=== PATIENT | male | born 1965 | race Caucasian/White ===

== ENCOUNTER 2021-05-12 02:41 | Inpatient (IN) | payer OTHER ==
[~2021-05-12] VITALS: Ht 188 cm; Wt 95.3 kg
--- NOTE | 2021-05-12 02:56 | NUR ---
MD Rosenthal in room to do MSE.
[2021-05-12] MEDS ORDERED: ALBUTEROL SULFATE 2.5 MG/3 ML NEBU NEB ONE (03:00)
--- NOTE | 2021-05-12 03:12 | NUR ---
Respiratory therapist in room providing breathing treatment.
[2021-05-12] MEDS ORDERED: ALBUTEROL SULFATE 2.5 MG/3 ML NEBU ONE (03:18)
--- NOTE | 2021-05-12 03:20 | NUR ---
auto transmission technician at bedside.
[2021-05-12 03:29] LABS: HEMATOCRIT 43.5 % (36.7-47.1); MEAN CORPUSCULAR HEMOGLOBIN 28.1 uug (23.8-33.4); MEAN CORPUSCULAR VOLUME 85.4 fL (73.0-96.2); PLATELET COUNT (AUTO) 205 K/uL (152-348)
[2021-05-12 03:31] LABS: POTASSIUM 3.9 mmol/L (3.5-5.1)
[2021-05-12 03:37] LABS: BILIRUBIN,DIRECT 0.1 mg/dL (0.0-0.2); BILIRUBIN,TOTAL 0.4 mg/dL (0.2-1.0); TOTAL PROTEIN, SERUM 6.8 g/dL (6.4-8.2)
[2021-05-12] MEDS ORDERED: IV NORMAL SALINE 250 ML IV ONE (04:13)
[2021-05-12] MEDS ORDERED: IOHEXOL 350 100 ML INFUS..BTL ONE (04:13)
[2021-05-12] MEDS ORDERED: SWABABLE VALVE TRANSFER SET EA MC ONE (04:13)
--- NOTE | 2021-05-12 04:21 | NUR ---
Patient taken out for CT scan with contrast by hvac service technician.
--- NOTE | 2021-05-12 05:00 | NUR ---
Patient is resting comfortably in bed with eyes closed, no acute distress noted.
[2021-05-12] MEDS ORDERED: ENOXAPARIN SODIUM 100 MG/ML DISP.SYRIN SQ ONE ×2 (06:15→06:21)
--- NOTE | 2021-05-12 06:15 | NUR ---
MD Rosenthal connected to ROJELIO Singh from [facility].
--- NOTE | 2021-05-12 06:21 | NUR ---
Faraz pak in [facility] - 05/12/21 at 0636 by PAULINE Called for a room, patient will be assigned to [id number].
--- NOTE | 2021-05-12 06:21 | NUR ---
Called for a room, patient will be assigned to telemetry 314; COVID suspect per MD Rosenthal.
--- NOTE | 2021-05-12 06:33 | NUR ---
Report given to BA Salas.
[2021-05-12] MEDS ORDERED: ACETAMINOPHEN 325 MG TABLET PO PRN (06:45)
[2021-05-12] MEDS ORDERED: Z GUARD REMEDY PASTE 57 GM TUBE TOP PRN (06:45)
[2021-05-12] MEDS ORDERED: ONDANSETRON 4 MG/2 ML VIAL IV PRN (06:45)
[2021-05-12] MEDS ORDERED: MAGNESIUM HYDROXIDE 30 ML LIQUID UDC PO PRN (06:45)
--- NOTE | 2021-05-12 08:00 | NUR ---
received patient from ER via wheel chair. patient transferred to bed, patients vitals checked. patient on room air with saturation at 96%, patient able to ambulate per self with steady gait. patient stable at this time with no complains of any SOB, pain or discomfort. call light and belongings within reach. will continue to monitor.
--- NOTE | 2021-05-12 08:00 | NUR ---
transfered pt to floor in stable condition, with pui precautions .
[2021-05-12 11:00] VITALS: BP 131/74
[2021-05-12 16:04] VITALS: BP 133/74
[2021-05-12] MEDS ORDERED: ENOXAPARIN SODIUM 100 MG/ML DISP.SYRIN SQ SCH (18:00)
--- NOTE | 2021-05-12 18:46 | NUR ---
PATIENT IN BED AWAKE AND ALERT, HOB ELEVATED. PATIENT ON ROOM AIR WITH SATURATION AT 98%. PATIENT ABLE TO AMBULATE PER SELF. NO SOB, PAIN OR DISTRESS NOTED AT THIS TIME. CALL LIGHT WITHIN REACH. WILL REPORT TO ONCOMING SHIFT.
[2021-05-12] MEDS ORDERED: ALBUTEROL SULFATE 2.5 MG/3 ML NEBU NEB SCH (19:45)
[2021-05-12] MEDS ORDERED: IPRATROPIUM BROMIDE 0.5 MG/2.5 ML NEBU NEB SCH (19:45)
[2021-05-12] MEDS ORDERED: ALBUTEROL SULFATE 2.5 MG/3 ML NEBU NEB PRN (19:45)
[2021-05-12] MEDS ORDERED: IPRATROPIUM BROMIDE 0.5 MG/2.5 ML NEBU NEB PRN (19:45)
[2021-05-12 20:34] VITALS: BP 120/58
[2021-05-12] MEDS ORDERED: methylPREDNISolone SOD SUCC 125 MG/2 ML VIAL IV SCH (22:00)
--- NOTE | 2021-05-12 22:10 | NUR ---
Patient AAOX4, no sob, no c/o pain noted, room air and 02 sat = 98% , Patient want go to home, report to Ibeth Styles and DOMINIQUE
== END 2021-05-13 05:10 | disposition left against medical advice (07) | DRG 176 ==
LOC: ER 02:56 → TELE3 06:10
PROVIDERS: ADMIT Nurse Practitioner Acute Care; ATTEND Nurse Practitioner Acute Care
DX: I26.99 Other pulmonary embolism without acute cor pulmonale (principal); J44.0 Chronic obstructive pulmonary disease with (acute) lower respiratory infection; Z20.822 Contact with and (suspected) exposure to COVID-19; Z59.0 Homelessness; F99 Mental disorder, not otherwise specified; J44.9 Chronic obstructive pulmonary disease, unspecified; R06.03 Acute respiratory distress; J20.9 Acute bronchitis, unspecified
CPT/HCPCS: 36415; 70030-TC; 71045; 71275; 82785; 85025; 93005; 94664; A4663; G0378; J1650; J2930; J3590; J7050; Q9967; U0003

== ENCOUNTER 2022-12-03 13:10 | Emergency (ER) | payer OTHER ==
[~2022-12-03] VITALS: Ht 188 cm; Wt 95.3 kg
--- NOTE | 2022-12-03 15:44 | NUR ---
PT WAS EVALUTED BY DR UNGER. PT WAS D/C'd TO HOME. D/C INSTRUCTIONS GIVEN TO THE PT BY DR UNGER.
[2022-12-03 15:48] VITALS: BP 142/79
== END 2022-12-03 15:54 | disposition home or self-care (01) ==
LOC: ER 13:14
DX: J06.9 Acute upper respiratory infection, unspecified (principal); Z20.822 Contact with and (suspected) exposure to COVID-19; F17.200 Nicotine dependence, unspecified, uncomplicated; Z86.711 Personal history of pulmonary embolism
CPT/HCPCS: 86403; A4663

== ENCOUNTER 2022-12-25 15:00 | Emergency (ER) | payer OTHER ==
[~2022-12-25] VITALS: Ht 188 cm; Wt 95.3 kg
[2022-12-25] MEDS ORDERED: HALOPERIDOL LACTATE 5 MG/1 ML VIAL ONE ×2 (15:27→15:42)
[2022-12-25] MEDS ORDERED: LORAZEPAM 2 MG/1 ML VIAL ONE ×2 (15:29→15:42)
[2022-12-25] MEDS ORDERED: LORAZEPAM 2 MG/1 ML VIAL IM ONE (15:30)
[2022-12-25] MEDS ORDERED: HALOPERIDOL LACTATE 5 MG/1 ML VIAL IM ONE (15:30)
[2022-12-25 15:40] LABS: HEMATOCRIT 39.6 % (36.7-47.1); MEAN CORPUSCULAR HEMOGLOBIN 28.7 uug (23.8-33.4); PLATELET COUNT (AUTO) 244 K/uL (152-348)
[2022-12-25 15:50] LABS: ACETAMINOPHEN < 2.0 ug/mL (10-30); BILIRUBIN,TOTAL 0.3 mg/dL (0.2-1.0); CREATININE 0.7 mg/dL (0.6-1.3); TOTAL PROTEIN, SERUM 6.5 g/dL (6.4-8.2)
[2022-12-25 15:53] LABS: ETHANOL < 3 MG/DL (0-0)
[2022-12-25 15:58] LABS: *BILIRUBIN,URIN NEGATIVE (NEGATIVE); *CLARITY,URINE CLEAR (CLEAR); *COLOR,URINE YELLOW (YELLOW); *KETONES,URINE NEGATIVE (NEGATIVE); *UROBILINOGEN,URINE 0.2 E.U./dl (NORMAL); LEUKOCYTE ESTERASE ,URINE NEGATIVE (NEGATIVE); NITRITE, URINE NEGATIVE (NEGATIVE)
[2022-12-25 16:00] LABS: *BLOOD, URINE NEGATIVE (NEGATIVE); UGLUCOSE 2+ (NEGATIVE)
[2022-12-25 16:01] LABS: BACTERIA,URINE NONE SEEN /HPF (NONE SEEN); RBC,URINE 0-3 /HPF (0-3); SQUAMOUS EPITHELIAL CELL,UR NONE SEEN /HPF (NONE SEEN); WBC,URINE NONE SEEN /HPF (0-3)
[2022-12-25 16:07] LABS: *AMPHETAMINE, URINE NEGATIVE (NEGATIVE); *CANNABINOID, URINE NEGATIVE (NEGATIVE); *COCCAINE, URINE NEGATIVE (NEGATIVE); *PHENCYCLIDINE SCREEN,URINE NEGATIVE (NEGATIVE)
--- NOTE | 2022-12-25 16:07 | NUR ---
PT. RECEIVED TO ED VIA EMS. PT. IS AWAKE ALERT AND CONFUSED, DELUSIONAL. PT. IS VERY AGITATED, AND REQUESTED INITALLY TO SEE A DOCTOR. PT. HAS REFUSED ALL MEDICATION PRESCIBED BY ED PHYSICIAN. PT. DID ALLOW LAB TO DRAW BLOOD WITH SECURITY PRESENT, , AND PRIMARY RN. PT. REFUSED EKG . PT. SITTING ON BED WAITING TO BE EVALUATED BUT ALSO STATING HE WANTS ED TO PROVIDE A RIDE FOR HIM. AWAITING DISPOSITION.
[2022-12-25] MEDS ORDERED: ALBUTEROL SULFATE 8 GM HFA.AER.AD IH PRN (17:00)
--- NOTE | 2022-12-25 17:00 | NUR ---
Pt. has refused Ativan 2mg. and Haldol 5mg. twice. First ordered by and pt. said he didnt want " any needles". Medication wasted and was witnessed by Joelle COSME. The second dose of both meds wasted because pt. requested the medications . Dr. Howell reordered and when approached pt. in room with meds., he declined again. Medication wasted and documented per protocol. Pt. given lunch and we continue to wait for psychiatric eval.
--- NOTE | 2022-12-25 17:13 | NUR ---
Pt. observed sitting on stretcher. Awaiting psychiatry consult. Requesting albuterol as he states " thats all I need"
[2022-12-25] MEDS ORDERED: ALBU6.7H9 INH (17:49)
[2022-12-25 18:41] VITALS: BP 145/82
== END 2022-12-25 18:42 | disposition home or self-care (01) ==
LOC: ER 15:02
DX: Z00.00 Encounter for general adult medical examination without abnormal findings (principal); F20.9 Schizophrenia, unspecified; Z91.14 Patient's other noncompliance with medication regimen; Z86.711 Personal history of pulmonary embolism
CPT/HCPCS: 36415; 85025; A4663; G0480; J1630; J2060